=== PATIENT | female | born 1970 | race Caucasian/White ===

== ENCOUNTER 2021-01-17 13:40 | Emergency (ER) | payer SELFPAY ==
--- NOTE | 2021-01-17 13:47 | ED.FEMALEGU ---
HPI - Female Genitourinary General Chief complaint: Urogenital-Female Stated complaint: Urinary Problem Time Seen by Provider: 01/17/21 13:47 Source: patient and RN notes reviewed History of Present Illness HPI Narrative: Patient is a 50-year-old female who presents the urgent care with complaints of a possible UTI. Patient states that for the last 3 days she has had urinary urgency, frequency and suprapubic pressure. Patient has been taking ibuprofen for her symptoms. Denies of any low back pain, fever, nausea, vomiting. Patient does have history of UTI but nothing recently. No other acute complaints. No acute distress noted. Patient aware of the plan of care. Some parts of this dictation were generated by voice recognition software and may contain typographical and/or grammatical inaccuracies. Related Data Home Medications Medication Instructions Recorded Confirmed escitalopram oxalate 20 mg PO DAILY 01/17/21 01/17/21 propranolol 40 mg PO BID 01/17/21 01/17/21 sumatriptan succinate See Rx Instructions .ROUTE .COMPLEX 01/17/21 01/17/21 topiramate 100 mg PO BID 01/17/21 01/17/21 verapamil 80 mg PO TID 01/17/21 01/17/21 Allergies Allergy/AdvReac Type Severity Reaction Status Date / Time Sulfa (Sulfonamide Allergy Unknown Unknown Verified 01/17/21 13:59 Antibiotics) Review of Systems Review of Systems: CONSTITUTIONAL: Denies fever, chills, or sweats. EYES: Denies visual changes, redness, or discharge. ENT: Denies rhinorrhea, congestion, sore throat, or otalgia. CARDIOVASCULAR: Denies chest pain, palpitations, or edema. RESPIRATORY: Denies cough or dyspnea. GASTROINTESTINAL: Denies abdominal pain, nausea, vomiting, or diarrhea. GENITOURINARY: Reports of urinary frequency, urgency and suprapubic pressure SKIN: Denies rash or itching. MUSCULOSKELETAL: Denies back pain, joint pain, or myalgia. NEUROLOGIC: Denies headache, numbness, or weakness. All other systems reviewed are negative, except as documented in HPI. PMFSH Comments At the time of my signature, I reviewed and agree with the nursing past medical, surgical, social, and family history. There is no relevant family history pertinent to the patient complaint. Exam Narrative: GENERAL: This is a well-nourished, well-developed patient, in no apparent distress. HEAD: normocephalic, atraumatic. EYES: PERRL. Sclera clear/white. Vision is grossly intact. EARS: External ears normal NOSE: External nose normal with no obvious nasal discharge, nares without redness, no rhinorrhea. THROAT: Mucous membranes moist NECK: Neck supple CARDIOVASCULAR: Regular rate and rhythm without murmurs, gallops, or rubs. RESPIRATORY: Clear to auscultation. Breath sounds equal bilaterally. No wheezes, rales, or rhonchi. GASTROINTESTINAL: Abdomen soft, non-tender, nondistended. Bowel sounds are active. SKIN: warm, intact with no suspicious lesions or rash, good texture and turgor. NEURO: awake, alert, and oriented to person, place and time. There were no obvious focal neurologic abnormalities. EXTREMITIES: No clubbing, cyanosis, or edema. BACK: Negative bilateral CVA tenderness Course Vital Signs Vital signs: Vital Signs Temperature 98.1 F 01/17/21 13:50 Pulse Rate 66 01/17/21 13:50 Respiratory Rate 18 01/17/21 13:50 Blood Pressure 123/78 01/17/21 13:50 Pulse Oximetry 100 01/17/21 13:50 Temperature 98.1 F 01/17/21 13:50 Pulse Rate 66 01/17/21 13:50 Respiratory Rate 18 01/17/21 13:50 Blood Pressure 123/78 01/17/21 13:50 Pulse Oximetry 100 01/17/21 13:50 Reviewed MDM - Female Genitourinary MDM Narrative Medical decision making narrative: Reviewed lab results with the patient. She is aware that urine analysis is not indicative of a urinary tract infection. Therefore, we will not culture the urine. Advised the patient to increase her water intake and avoid sugary and caffeinated drinks. If you develop any increase in symptoms associated fev
[2021-01-17 13:50] VITALS: BP 123/78; PULSE 66; RESP 18; TEMP 36.7; O2SAT 100
== END 2021-01-17 14:20 | disposition home or self-care (01) ==
PROVIDERS: Emergency Provider Nurse Practitioner Family
DX: R35.0 Frequency of micturition (principal); R39.15 Urgency of urination; E78.00 Pure hypercholesterolemia, unspecified; I10 Essential (primary) hypertension; K21.9 Gastro-esophageal reflux disease without esophagitis; F41.9 Anxiety disorder, unspecified; F32.A Depression, unspecified
CPT/HCPCS: 81003; 99212; G0463

== ENCOUNTER 2022-03-29 11:55 | Emergency (ER) | payer OTHER, BC, SELFPAY ==
--- NOTE | ~2022-03-29 | XR_ITS ---
EXAMINATION: XR foot RT min 3V DATE: 03/29/2022 12:20 INDICATION: Right foot injury and pain. TECHNIQUE: 4 views of right foot were obtained. COMPARISON: None. FINDINGS: There is a comminuted fracture of tuft of first distal phalanx. The main distal fracture fr agment demonstrates near-anatomic alignment. Joint spaces are normal. There is an enthesophyte at [place] aspect of calcaneal tuberosity. IMPRESSION: 1. Comminuted fracture of tuft of first distal phalanx. Reviewed, dictated and finalized at location [facility]
--- NOTE | 2022-03-29 12:00 | ED.LOWEXIN ---
HPI - Extremity Injury (Lower) General Chief Complaint: Extremity Injury, Lower Stated Complaint: Toe Injury Time Seen by Provider: 03/29/22 12:00 Source: patient Mode of arrival: ambulatory Limitations: no limitations History of Present Illness HPI Narrative: Jackie is a 51-year-old female patient presenting to the clinic today with complaints of a toe injury. 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 She has bruising and swelling over the base of the right great toe Related Data Home Medications Medication Instructions Recorded Confirmed escitalopram oxalate 20 mg tablet 20 mg PO DAILY 01/17/21 03/29/22 propranolol 40 mg tablet 40 mg PO BID 01/17/21 03/29/22 sumatriptan succinate 100 mg tablet 100 mg PO DAILY PRN Headache 01/17/21 03/29/22 topiramate 100 mg tablet 100 mg PO BID 01/17/21 03/29/22 verapamil 80 mg tablet 80 mg PO TID 01/17/21 03/29/22 Allergies Allergy/AdvReac Type Severity Reaction Status Date / Time Sulfa (Sulfonamide Allergy Unknown Unknown Verified 03/29/22 12:14 Antibiotics) Review of Systems Review of Systems: Pertinent positives per HPI. Patient denies any fever, chills, rash, headache, visual changes, dizziness, cough, runny nose, sore throat, shortness of breath, chest pain, palpitations, nausea, vomiting, diarrhea, constipation, abdominal pain, or any urinary issues. PMFSH Comments At the time of my signature, I reviewed and agree with the nursing past medical, surgical, social, and family history. There is no relevant family history pertinent to the patient complaint. Exam Narrative: General: Well-developed, well nourished, in no apparent distress Head: Normocephalic, atraumatic. Cardio: Regular rate and rhythm, s1 and s2 normal, no murmur appreciated. Resp: Clear to auscultation bilaterally, no rhonchi, rales, wheezing or rubs. Musculoskeletal: No deformity, bruising and swelling noted to the proximal and mid right great toe proximal and mid, tender to palpation over the right great toe and 2nd toe, limited range of motion of the right great toe, muscle strength strong and equal, peripheral pulse strong, no cyanosis, no subungual hematoma, normal gait and station Course Course Emergency Course: Portions of this record may have been created with voice recognition software. Level of Care: Express Care Visit Vital Signs Vital signs: Vital Signs Temperature 37.2 C 03/29/22 12:05 Pulse Rate 79 03/29/22 12:05 Respiratory Rate 16 03/29/22 12:05 Blood Pressure 140/93 H 03/29/22 12:05 Pulse Oximetry 99 03/29/22 12:05 Oxygen Delivery Room Air 03/29/22 12:05 Temperature 37.2 C 03/29/22 12:05 Pulse Rate 79 03/29/22 12:05 Respiratory Rate 16 03/29/22 12:05 Blood Pressure 140/93 H 03/29/22 12:05 Pulse Oximetry 99 03/29/22 12:05 Oxygen Delivery Room Air 03/29/22 12:05 Vital signs reviewed MDM - Extremity Injury (Lower) MDM Narrative Medical decision making narrative: At the time of visit patient is resting comfortably on the exam table. X-ray was performed of the right foot and shows a tuft fracture of the right great toe. I will treat this as an open fracture and place the patient on antibiotics and a postop shoe was given to the patient she voiced understanding discharge instructions agrees to treatment plan. Tetanus shot was given in the clinic today Differential Diagnosis Differential diagnosis: Likely fracture of toe and other ( toe contusion, foot contusion) Imaging Data Radiologist's impression: Close Foot X-Ray (Signed) Dinesh Reynolds - 03/29/22 Launch?Image [address] [address] XRay Report Signed Patient: Jackie Bingham : 1970 MR#: [id number] Age/Sex: 51 / F Acct:[id number] Loc: [facility]? ? ADM Date: 03/29/22Attending Dr: Ordering Julia
[2022-03-29 12:05] VITALS: BP 140/93; PULSE 79; RESP 16; TEMP 37.2; O2SAT 99
[2022-03-29] MEDS: TETANUS,DIPHTHERIA,AC PERTUSSIS ADULT (0.5 ML) BOOSTRIX IM (12:36)
== END 2022-03-29 12:47 | disposition home or self-care (01) ==
PROVIDERS: Emergency Provider Nurse Practitioner Family
DX: S92.424A Nondisplaced fracture of distal phalanx of right great toe, initial encounter for closed fracture (principal); W20.8XXA Other cause of strike by thrown, projected or falling object, initial encounter; Z23 Encounter for immunization; E78.00 Pure hypercholesterolemia, unspecified; I10 Essential (primary) hypertension; K21.9 Gastro-esophageal reflux disease without esophagitis; Z90.711 Acquired absence of uterus with remaining cervical stump; F41.9 Anxiety disorder, unspecified; F32.A Depression, unspecified
CPT/HCPCS: 73630; 90471; 90715; 99214; G0463

== ENCOUNTER 2023-07-16 16:24 | Emergency (ER) | payer OTHER, SELFPAY ==
[2023-07-16 16:30] VITALS: BP 152/91; PULSE 64; RESP 20; TEMP 36.8; O2SAT 100
--- NOTE | 2023-07-16 16:34 | ED.FEMALEGU ---
HPI - Female Genitourinary General Chief complaint: Urogenital-Female Stated complaint: Urinary Problem Time Seen by Provider: 07/16/23 16:35 Source: patient, RN notes reviewed and old records reviewed Mode of arrival: ambulatory Limitations: no limitations History of Present Illness HPI Narrative: 53 year old female who presents to [facility] care with complaints of burning and frequency of urination for the past 3 days. Patient reports that she has taken some AZO with last dose early this morning and she has increased her oral fluid intake of water. Patient reports that she has had some suprapubic tenderness and some lower back pain, reports some visible blood noted in urine. Patient reports no fevers chills or any nausea or vomiting. Patient reports no vaginal discharge or any concern for STD exposure. MD elicited complaint: dysuria, back pain and other (suprapubic tenderness ) Onset (ago): day(s) (3) Location of symptoms: suprapubic, urethra and low back Severity scale (1-10): 4 Quality of pain: dull and aching Vaginal discharge: none Treatment prior to arrival: OTC urinary analgesics (AZO) Related Data Home Medications Medication Instructions Recorded Confirmed escitalopram oxalate 20 mg tablet 20 mg PO DAILY 01/17/21 03/29/22 propranolol 40 mg tablet 40 mg PO BID 01/17/21 03/29/22 sumatriptan succinate 100 mg tablet 100 mg PO DAILY PRN Headache 01/17/21 03/29/22 topiramate 100 mg tablet 100 mg PO BID 01/17/21 03/29/22 verapamil 80 mg tablet 80 mg PO TID 01/17/21 03/29/22 Allergies Allergy/AdvReac Type Severity Reaction Status Date / Time Sulfa (Sulfonamide Allergy Unknown Unknown Verified 03/29/22 12:14 Antibiotics) Review of Systems Review of Systems: CONSTITUTIONAL: Denies fever, chills, or sweats. CARDIOVASCULAR: Denies chest pain, palpitations, or edema. RESPIRATORY: Denies cough or dyspnea. GASTROINTESTINAL: Denies abdominal pain, nausea, vomiting, or diarrhea. GENITOURINARY: Reports dysuria, frequency, urgency. Denies flank pain, has noted visible blood in urine SKIN: Denies rash or itching. MUSCULOSKELETAL:Reports low back pain or myalgia. Denies CVA tenderness NEUROLOGIC: Denies headache All systems reviewed & are unremarkable except as noted in HPI and below PMFSH Past Medical History Medical History (Updated 07/16/23 @ 18:55 by Erinn Sanders NP) Anxiety and depression GERD (gastroesophageal reflux disease) Kidney stone Migraine Urinary tract infection Surgical History Surgical History (Updated 07/16/23 @ 18:54 by Erinn Sanders NP) History of partial hysterectomy Hx of cholecystectomy Previous section Social History Social History (Updated 07/16/23 @ 18:53 by Erinn Sanders NP) Smoking packs per day: 1 Smoking cigarettes per day: 20.0 Years smoked: 6 Smoking pack-years: 6.00 Smoking status: Former smoker Alcohol intake: current Alcohol use details: social Substance use type: does not use Living arrangements: with family Gender identity (if verbalized by the patient): Female Comments At time of signature, agree with nursing past medical, surgical, social and family history. There is no relevant family history pertinent to the presenting complaint Exam Narrative: GENERAL: Well-appearing, well-nourished, and in no acute distress. HEAD: Normocephalic, atraumatic. NECK: Supple. no lymphadenopathy CHEST: Clear to auscultation. No respiratory distress.SAO2 100% on room air HEART: Regular rate and rhythm. No murmur heard. Normal peripheral pulses. ABDOMEN: Soft, tender suprapubic, nondistended, normal active bowel sounds. No CVA tenderness, some low back discomfort EXTREMITIES: Normal range of motion. No edema. SKIN: Warm, dry, no rash. NEURO: No focal deficits. Alert and oriented x3. Course Course Emergency Course: Patient is aware of diagnosis, understands and agrees to treatment plan.? Anticipatory guidance given.? Patient agr
== END 2023-07-16 17:02 | disposition home or self-care (01) ==
PROVIDERS: Emergency Provider Registered Nurse
DX: N39.0 Urinary tract infection, site not specified (principal); B96.20 Unspecified Escherichia coli [E. coli] as the cause of diseases classified elsewhere; Z87.891 Personal history of nicotine dependence; K21.9 Gastro-esophageal reflux disease without esophagitis; F41.9 Anxiety disorder, unspecified; F32.A Depression, unspecified; Z90.711 Acquired absence of uterus with remaining cervical stump
CPT/HCPCS: 81003; 87077; 87086; 87088; 87186; 99213; G0463